=== PATIENT | male | born 1980 | race Two or more races ===

== ENCOUNTER 2017-12-31 08:54 | Emergency (ER) | payer OTHER ==
[2017-12-31] MEDS ORDERED: IBUPROFEN 600 MG TAB PO ONE (09:13)
--- NOTE | 2017-12-31 09:15 | EDPHY ---
H & P Time Seen by Provider: 12/31/17 09:03 HPI/ROS: CHIEF COMPLAINT: Left ring finger injury History by patient HISTORY OF PRESENT ILLNESS: 37-year-old otherwise healthy man presents complaining of pain and swelling and abrasions to left ring finger after his finger got caught in metal machine at work he had to forcibly pulled out by jumping down. This occurred yesterday. He did take ibuprofen last night. He removed his ring immediately after the incident. Fingers been painful swollen since. He has difficulty bending it due to pain. Last tetanus shot was 2 years ago. REVIEW OF SYSTEMS: As in HPI, and all other systems reviewed and are negative Smoking Status: Never smoked Physical Exam: General Appearance: Alert and no distress. Head: Normocephalic, atraumatic Eyes: Pupils equal and round no injection. Extraocular movements are intact. Musculoskeletal: Neck is supple and nontender. Extremities: Left ring finger positive swelling around PIP joint with abrasions on dorsal volar aspect. Full range of motion against resistance inflection extended but with pain. Distal cap refills is 2 sec. Two-point discrimination is intact on the distal finger tip on the volar aspect and on the radial aspect, but patient has difficulty discriminating 2 point pressure on the ulnar side, however he can feel pressure. Skin: No rashes or lesions except as described above. Constitutional: Initial Vital Signs Temperature (C) 37 C 12/31/17 09:02 Heart Rate 86 12/31/17 09:02 Respiratory Rate 16 12/31/17 09:02 Blood Pressure 141/88 H 12/31/17 09:02 O2 Sat (%) 96 12/31/17 09:02 O2 Delivery Mode Room Air Allergies/Adverse Reactions: No Known Allergies Allergy (Verified 12/31/17 09:12) Home Medications: Medication Instructions Recorded NK [No Known Home Meds] 12/31/17 MDM/Departure - MDM Imaging Results: Imaging Impressions Finger X-Ray 12/31/17 09:13 Impression: Soft tissue swelling, with no acute osseous abnormality. Medications Given: Discontinued Medications Ibuprofen (Motrin) 600 mg PO EDNOW ONE Stop: 12/31/17 09:14 Last Admin: 12/31/17 09:17 Dose: 600 mg - Depart Disposition: Home, Routine, Self-Care Clinical Impression: Abrasion Contusion Qualifiers: Encounter type: initial encounter Contusion area: finger Finger: ring finger Damage to nail status: without damage Laterality: left Qualified Code(s): S60.042A - Contusion of left ring finger without damage to nail, initial encounter Injury of digital nerve of finger Qualifiers: Encounter type: initial encounter Qualified Code(s): S64.40XA - Injury of digital nerve of unspecified finger, initial encounter Condition: Good Instructions: Abrasion (ED), Contusion in Adults (ED) Additional Instructions: You were seen by Dr. Casie Flores today. You have injured her left ring finger. The numbness and tingling is due to a nerve injury. This may improve when the swelling goes down although you may have some permanent sensation damage. You may continue to take ibuprofen 600 mg 4 times a day as needed for pain as well as icing the finger for pain and swelling. Keeping your hand above the level of the heart will reduce the swelling. Do not put your ring back on until the wound had healed and the swelling has completely resolved. Watch for signs and symptoms of infection including but not limited to pus coming from the wound, increased swelling, redness, hand swelling or fever. Return immediately if he develops any of these signs. Return for any worsening or new concerns. Referrals: NONE *PRIMARY CARE P,. [Primary Care Provider] - As per Instructions Print Language: Croatian
[2017-12-31 10:26] VITALS: BP 132/76
== END 2017-12-31 10:27 | disposition home or self-care (01) ==
LOC: CED 08:54
DX: S64.495A Injury of digital nerve of left ring finger, initial encounter (principal); S60.042A Contusion of left ring finger without damage to nail, initial encounter; S60.415A Abrasion of left ring finger, initial encounter; W23.0XXA Caught, crushed, jammed, or pinched between moving objects, initial encounter; Y92.69 Other specified industrial and construction area as the place of occurrence of the external cause; Y99.0 Civilian activity done for income or pay; Y93.89 Activity, other specified
CPT/HCPCS: 73140-PO